=== PATIENT | female | born 1945 | race Caucasian/White ===

== ENCOUNTER → 2024-01-29 12:14 | Outpatient (REF) | payer MEDICARE, SELFPAY | LOC: WDC 12:14 | PROVIDERS: ATTENDING PHYSICIAN Internal Medicine | DX: Z12.31 Encounter for screening mammogram for malignant neoplasm of breast (principal) | CPT/HCPCS: 77063; 77067 ==

== ENCOUNTER → 2025-01-28 14:24 | Outpatient (REF) | payer MEDICARE, SELFPAY | LOC: WDC 14:24 | PROVIDERS: ATTENDING PHYSICIAN Nurse Practitioner Adult Health | DX: Z12.31 Encounter for screening mammogram for malignant neoplasm of breast (principal) | CPT/HCPCS: 77063; 77067 ==